=== PATIENT | male | born 1935 | race Caucasian/White ===

== ENCOUNTER 2019-11-25 14:30 | Inpatient (IN) ==
[2019-11-25] MEDS ORDERED: SODIUM CHLORIDE 0.9% 500 ML IV STA (15:16)
[2019-11-25 15:41] LABS: Basophils % 0.2 % (0.0-0.8); Hematocrit 36.3 VOL% (42.0-52.0); Hemoglobin 11.9 GM/DL (14.0-18.0); Immature Granulocytes % 0.8 %; Immature Granulocytes Absolute 0.13 #; Lymphocytes # 0.8 10*3/uL (1.4-4.0); Mean Corpuscular HGB Conc 32.8 GM/DL (32-36); Mean Corpuscular Volume 80.1 FL (87-102); Mean Platelet Volume 10.4 FL (9.6-12.0); Monocytes % 7.2 % (1.7-12.7); Neutrophils % 86.8 % (38.7-73.9); Platelet Count 272 T/CUMM (130-400); Red Blood Count 4.53 MC/CUMM (3.8-5.5); Red Cell Distribution Width 15.1 % (9.3-17.3); White Blood Count 16.7 T/CUMM (4-12)
[2019-11-25 16:05] LABS: Alanine Aminotransferase 17 U/L (16-61); Albumin 3.7 G/DL (3.4-5.0); Alkaline Phosphatase 40 U/L (45-117); Aspartate Amino Transferase 12 U/L (0-37); Blood Urea Nitrogen 36 MG/DL (7-18); Calcium 9.2 MG/DL (8.5-10.1); Estimated Glom Filtration Rate 46 ML/MIN; Glucose 246 MG/DL (74-106); Osmolality,Calculated 281.4 MOS/KG (273-304); Total Protein 8.1 G/DL (6.4-8.3); Troponin I < 0.015 NG/ML (0.00-0.045)
[2019-11-25] MEDS ORDERED: AZITHROMYCIN INJ 500 MG in SODIUM CHLORIDE 0.9% 250 ML IV STA (16:08)
[2019-11-25] MEDS ORDERED: methylPREDNISolone SOD SUC 125 MG/2 ML VIAL IV STA (16:08)
[2019-11-25] MEDS ORDERED: HYDROXYCHLOROQUINE 200 MG TABLET PO STA (16:08)
[2019-11-25 16:12] LABS: Ferritin 40.6 ng/ml (26-388)
[2019-11-25 17:24] LABS: Apearance,Urine CLEAR (Clear); Bacteria,Urine Occasional /HPF (Few); Bilirubin,Urine Negative (Negative); Blood, Urine Small mg/dL (Negative); Glucose,Urine (UA) 150 mg/dL (Negative); Hyaline Casts,Urine 4 /LPF (0-3); Ketones,Urine Negative (Negative); Mucus,Urine Occasional /LPF (Occasional); Nitrite,Urine Negative (Negative); Protein,Urine 100 MG/DL; RBC,Urine 2 /HPF (0-4); Squamous Epithelial Cell,Urine Occasional /HPF (0-10); Urine Color Yellow (Yellow); Urine Urobilinogen < 2.0 EU/DL (0.2-1.0); WBC,Urine 2 /HPF (0-6)
[2019-11-25] MEDS ORDERED: ONDANSETRON 4 MG/2 ML VIAL IV PRN (18:11)
[2019-11-25] MEDS ORDERED: DEXTROSE 10% 250 ML BAG IV PRN (18:11)
[2019-11-25] MEDS ORDERED: DEXTROSE 50% 25 GM/50 ML VIAL IV PRN (18:11)
[2019-11-25] MEDS ORDERED: GLUCAGON 1 MG VIAL IM PRN (18:11)
[2019-11-25] MEDS: ZINC SULFATE 220 MG CAPSULE PO SCH (21:50)
[2019-11-25] MEDS: SIMVASTATIN 10 MG TABLET PO SCH (21:50)
[2019-11-25] MEDS: INSULIN LISPRO 100 UNIT/ML SUBCUT SCH (21:55)
[2019-11-26] MEDS: INSULIN LISPRO 100 UNIT/ML SUBCUT SCH ×5 (00:55→21:57)
[2019-11-26 04:50] LABS: Basophils % 0.1 % (0.0-0.8); Hematocrit 34.9 VOL% (42.0-52.0); Hemoglobin 11.2 GM/DL (14.0-18.0); Immature Granulocytes % 0.8 %; Immature Granulocytes Absolute 0.11 #; Lymphocytes # 0.8 10*3/uL (1.4-4.0); Lymphocytes % 5.8 % (21.2-54.2); Mean Corpuscular HGB Conc 32.1 GM/DL (32-36); Mean Corpuscular Volume 80.4 FL (87-102); Mean Platelet Volume 11.1 FL (9.6-12.0); Monocytes % 3.2 % (1.7-12.7); Neutrophils % 90.1 % (38.7-73.9); Platelet Count 290 T/CUMM (130-400); Red Blood Count 4.34 MC/CUMM (3.8-5.5); Red Cell Distribution Width 15.2 % (9.3-17.3); White Blood Count 14.3 T/CUMM (4-12)
[2019-11-26 05:17] LABS: Albumin 3.2 G/DL (3.4-5.0); Bilirubin,Total 0.6 MG/DL (0.2-1.0); Calcium 8.8 MG/DL (8.5-10.1); Osmolality,Calculated 282.2 MOS/KG (273-304); Total Protein 7.5 G/DL (6.4-8.3)
[2019-11-26] MEDS ORDERED: HYDROXYCHLOROQUINE 200 MG TABLET PO SCH ×2 (09:00→09:39)
[2019-11-26] MEDS: PANTOPRAZOLE 40 MG TABLET PO SCH (09:40)
[2019-11-26] MEDS: METOPROLOL SUCCINATE XL 50 MG TABLET PO SCH (09:40)
[2019-11-26] MEDS: AZITHROMYCIN 250 MG TABLET PO SCH (09:40)
[2019-11-26] MEDS: amLODIPine 10 MG TABLET PO SCH (09:40)
[2019-11-26] MEDS: SODIUM CHLORIDE 0.9% 1,000 ML IV SCH ×2 (09:42→22:35)
[2019-11-26 11:44] LABS: % Iron Saturation 5.5 % (18-50)
[2019-11-26] MEDS: HYDROXYCHLOROQUINE 200 MG TABLET PO SCH (21:57)
[2019-11-26] MEDS: SIMVASTATIN 10 MG TABLET PO SCH (21:58)
[2019-11-27 05:51] LABS: Basophils % 0.1 % (0.0-0.8); Eosinophils % 0.1 % (0.00-10.9); Hemoglobin 10.1 GM/DL (14.0-18.0); Immature Granulocytes % 2.1 %; Immature Granulocytes Absolute 0.29 #; Lymphocytes # 0.7 10*3/uL (1.4-4.0); Lymphocytes % 4.6 % (21.2-54.2); Mean Corpuscular HGB Conc 31.6 GM/DL (32-36); Mean Corpuscular Volume 82.3 FL (87-102); Mean Platelet Volume 10.7 FL (9.6-12.0); Neutrophils % 88.1 % (38.7-73.9); Platelet Count 292 T/CUMM (130-400); Red Blood Count 3.89 MC/CUMM (3.8-5.5); Red Cell Distribution Width 15.2 % (9.3-17.3); White Blood Count 14.1 T/CUMM (4-12)
[2019-11-27 06:18] LABS: Albumin 2.6 G/DL (3.4-5.0); Bilirubin,Total 0.5 MG/DL (0.2-1.0); Calcium 7.1 MG/DL (8.5-10.1); Osmolality,Calculated 288.3 MOS/KG (273-304); Total Protein 6.3 G/DL (6.4-8.3)
[2019-11-27 06:59] LABS: Anisocytosis 1+; Band Neutrophils 15 % (0-10); Lymphocytes 6 % (20-55); Metamyelocytes 1 %; Platelet Estimate Normal; Segmented Neutrophils 73 % (50-85); Total Cells Counted 100
[2019-11-27 07:00] LABS: Macrocytosis Slight; Poikilocytosis Slight
[2019-11-27] MEDS: INSULIN LISPRO 100 UNIT/ML SUBCUT SCH ×4 (09:11→21:30)
[2019-11-27] MEDS: METOPROLOL SUCCINATE XL 50 MG TABLET PO SCH (09:12)
[2019-11-27] MEDS: PANTOPRAZOLE 40 MG TABLET PO SCH (09:13)
[2019-11-27] MEDS: HYDROXYCHLOROQUINE 200 MG TABLET PO SCH ×2 (09:13→21:30)
[2019-11-27] MEDS: AZITHROMYCIN 250 MG TABLET PO SCH (09:13)
[2019-11-27] MEDS: amLODIPine 10 MG TABLET PO SCH (09:13)
[2019-11-27] MEDS: ZINC SULFATE 220 MG CAPSULE PO SCH (09:44)
[2019-11-27] MEDS: POTASSIUM CHLORIDE 20 MEQ TABLET PO PRN ×4 (09:48→17:22)
[2019-11-27] MEDS: SIMVASTATIN 10 MG TABLET PO SCH (21:30)
[2019-11-27] MEDS: SODIUM CHLORIDE 0.9% 1,000 ML IV SCH (22:55)
[2019-11-28] MEDS: SODIUM CHLORIDE 0.9% 1,000 ML IV SCH ×2 (00:58→17:15)
[2019-11-28 05:16] LABS: Basophils % 0.1 % (0.0-0.8); Eosinophils % 0.3 % (0.00-10.9); Hematocrit 31.6 VOL% (42.0-52.0); Hemoglobin 10.4 GM/DL (14.0-18.0); Immature Granulocytes % 1.6 %; Immature Granulocytes Absolute 0.17 #; Lymphocytes # 0.6 10*3/uL (1.4-4.0); Lymphocytes % 5.7 % (21.2-54.2); Mean Corpuscular HGB Conc 32.9 GM/DL (32-36); Mean Corpuscular Volume 80.2 FL (87-102); Mean Platelet Volume 10.2 FL (9.6-12.0); Monocytes % 5.2 % (1.7-12.7); Neutrophils % 87.1 % (38.7-73.9); Platelet Count 253 T/CUMM (130-400); Red Blood Count 3.94 MC/CUMM (3.8-5.5); Red Cell Distribution Width 15.2 % (9.3-17.3); White Blood Count 10.6 T/CUMM (4-12)
[2019-11-28] MEDS: ACETAMINOPHEN 325 MG TABLET PO PRN ×2 (05:40→21:30)
[2019-11-28 06:39] LABS: Albumin 2.6 G/DL (3.4-5.0); Bilirubin,Total 0.5 MG/DL (0.2-1.0); Calcium 7.3 MG/DL (8.5-10.1); Total Protein 6.5 G/DL (6.4-8.3)
[2019-11-28] MEDS: ENOXAPARIN 40 MG/0.4 ML SYRINGE SUBCUT SCH (08:35)
[2019-11-28] MEDS: METOPROLOL SUCCINATE XL 50 MG TABLET PO SCH (08:36)
[2019-11-28] MEDS: AZITHROMYCIN 250 MG TABLET PO SCH (08:36)
[2019-11-28] MEDS: PANTOPRAZOLE 40 MG TABLET PO SCH (08:36)
[2019-11-28] MEDS: HYDROXYCHLOROQUINE 200 MG TABLET PO SCH ×2 (08:36→21:30)
[2019-11-28] MEDS: amLODIPine 10 MG TABLET PO SCH (08:36)
[2019-11-28] MEDS: INSULIN LISPRO 100 UNIT/ML SUBCUT SCH ×4 (09:25→21:30)
[2019-11-28] MEDS: SIMVASTATIN 10 MG TABLET PO SCH (21:30)
[2019-11-29] MEDS ORDERED: ETOMIDATE 20 MG/10 ML VIAL IV ONE ×2 (03:26→03:37)
[2019-11-29] MEDS ORDERED: ROCURONIUM 100 MG/10 ML VIAL IV ONE ×2 (03:26→03:54)
[2019-11-29] MEDS ORDERED: propofoL 200 MG/20 ML VIAL IV ONE (03:38)
[2019-11-29] MEDS ORDERED: propofoL 200 MG/20 ML VIAL IV STA (03:43)
[2019-11-29] MEDS: ROCURONIUM 500 MG in SODIUM CHLORIDE 0.9% 500 ML IV SCH (04:27)
[2019-11-29 04:30] LABS: ABG Base Excess -5.4 MMOL/L (-2.5-2.5); ABG HCO3 19.7 MMOL/L (20-26); ABG Oxygen Saturation 98.6 % (95-100); ABG PH 7.345 (7.35-7.45); ABG PO2 154.1 MM HG (80-95); ABG TCO2 20.9 MMOL/L (23-27); Allen Test Positive; Pt O2 Delivery Device Ventilator
[2019-11-29 05:05] LABS: Basophils % 0.2 % (0.0-0.8); Eosinophils % 0.2 % (0.00-10.9); Hematocrit 30.6 VOL% (42.0-52.0); Hemoglobin 9.8 GM/DL (14.0-18.0); Immature Granulocytes % 1.6 %; Immature Granulocytes Absolute 0.24 #; Lymphocytes # 0.5 10*3/uL (1.4-4.0); Mean Corpuscular Volume 81.2 FL (87-102); Monocytes % 2.8 % (1.7-12.7); Neutrophils % 92.2 % (38.7-73.9); Platelet Count 228 T/CUMM (130-400); Red Blood Count 3.77 MC/CUMM (3.8-5.5); Red Cell Distribution Width 15.4 % (9.3-17.3); White Blood Count 14.9 T/CUMM (4-12)
[2019-11-29 05:09] LABS: Osmolality,Calculated 281.7 MOS/KG (273-304)
[2019-11-29 05:26] LABS: Acanthocytes Few; Band Neutrophils 7 % (0-10); Hypochromasia 1+; Lymphocytes 3 % (20-55); Segmented Neutrophils 86 % (50-85); Total Cells Counted 100
[2019-11-29 05:27] LABS: Microcytosis Slight; Platelet Estimate Normal
[2019-11-29] MEDS ORDERED: POTASSIUM CHLORIDE RIDER 10 MEQ in PREMIX 1 EACH IV PRN (07:50)
[2019-11-29] MEDS ORDERED: MAGNESIUM SULF RIDER 2 GM in PREMIX 1 EACH IV PRN (07:50)
[2019-11-29] MEDS ORDERED: MAGNESIUM SULF RIDER 4 GM in PREMIX 1 EACH IV PRN (07:50)
[2019-11-29 08:06] LABS: Amorphous Crystals,Urine Few /HPF (Few); Apearance,Urine CLOUDY (Clear); Bilirubin,Urine Negative (Negative); Blood, Urine Small mg/dL (Negative); Glucose,Urine (UA) Negative (Negative); Ketones,Urine 5 mg/dL (Negative); Mucus,Urine Few /LPF (Occasional); Nitrite,Urine Negative (Negative); Protein,Urine 100 MG/DL; RBC,Urine 9 /HPF (0-4); Red Blood Cell Casts,Urine 14 /LPF (<1); Urine Color Yellow (Yellow); Urine Specific Gravity 1.023 (1.001-1.035); Urine Urobilinogen < 2.0 EU/DL (0.2-1.0); WBC,Urine 3 /HPF (0-6)
[2019-11-29] MEDS: PANTOPRAZOLE 40 MG VIAL IV SCH (12:22)
[2019-11-29] MEDS: PIPERACILLIN/TAZOBACTAM 3,375 MG in SODIUM CHLORIDE 0.9% 100 ML IV SCH ×3 (12:22→23:27)
[2019-11-29] MEDS: ENOXAPARIN 40 MG/0.4 ML SYRINGE SUBCUT SCH (12:22)
[2019-11-29] MEDS: AZITHROMYCIN 250 MG TABLET PO SCH (12:22)
[2019-11-29] MEDS: ZINC SULFATE 220 MG CAPSULE PO SCH (12:23)
[2019-11-29] MEDS: METOPROLOL TARTRATE 25 MG TABLET PO SCH ×2 (12:30→20:14)
[2019-11-29] MEDS: INSULIN LISPRO 100 UNIT/ML SUBCUT SCH ×4 (13:04→23:30)
[2019-11-29] MEDS: PANTOPRAZOLE 40 MG TABLET PO SCH (13:08)
[2019-11-29] MEDS: HYDROXYCHLOROQUINE 200 MG TABLET PO SCH ×2 (14:18→20:13)
[2019-11-29] MEDS ORDERED: SODIUM CHLORIDE 0.9% 1,000 ML IV SCH (18:00)
[2019-11-29] MEDS: SIMVASTATIN 10 MG TABLET PO SCH (20:14)
[2019-11-30] MEDS ORDERED: NOREPINEPHRINE 4 MG/4 ML VIAL IV ONE (01:12)
[2019-11-30 04:17] LABS: ABG Base Excess -10.2 MMOL/L (-2.5-2.5); ABG HCO3 16.3 MMOL/L (20-26); ABG TCO2 22.8 MMOL/L (23-27); Allen Test Positive; Pt O2 Delivery Device Ventilator
[2019-11-30 04:25] LABS: ABG PH 7.006 (7.35-7.45)
[2019-11-30 04:26] LABS: ABG PCO2 92.8 MM HG (35-48)
[2019-11-30] MEDS: INSULIN LISPRO 100 UNIT/ML SUBCUT SCH ×3 (05:46→18:13)
[2019-11-30] MEDS: ROCURONIUM 500 MG in SODIUM CHLORIDE 0.9% 500 ML IV SCH (05:52)
[2019-11-30 08:38] LABS: ABG Base Excess -9.8 MMOL/L (-2.5-2.5); ABG HCO3 16.7 MMOL/L (20-26); ABG Oxygen Saturation 99.5 % (95-100); ABG PCO2 60.3 MM HG (35-48); ABG TCO2 18.9 MMOL/L (23-27)
[2019-11-30 08:39] LABS: ABG PH 7.133 (7.35-7.45)
[2019-11-30 08:51] LABS: Calcium 7.8 MG/DL (8.5-10.1); Osmolality,Calculated 289.7 MOS/KG (273-304)
[2019-11-30] MEDS ORDERED: ASPIRIN EC 81 MG TABLET PO SCH (09:00)
[2019-11-30] MEDS ORDERED: SODIUM CHLORIDE 0.9% 500 ML IV ONE (09:13)
[2019-11-30] MEDS: PANTOPRAZOLE 40 MG VIAL IV SCH (09:24)
[2019-11-30] MEDS: HYDROXYCHLOROQUINE 200 MG TABLET PO SCH (09:25)
[2019-11-30] MEDS: METOPROLOL TARTRATE 25 MG TABLET PO SCH ×2 (09:25→21:16)
[2019-11-30] MEDS: PIPERACILLIN/TAZOBACTAM 3,375 MG in SODIUM CHLORIDE 0.9% 100 ML IV SCH ×2 (09:27→15:19)
[2019-11-30] MEDS: ENOXAPARIN 40 MG/0.4 ML SYRINGE SUBCUT SCH (09:49)
[2019-11-30] MEDS: SODIUM CHLORIDE 0.9% 1,000 ML IV SCH (10:23)
[2019-11-30 11:39] LABS: Basophils % 0.3 % (0.0-0.8); Eosinophils % 0.1 % (0.00-10.9); Hematocrit 32.2 VOL% (42.0-52.0); Hemoglobin 9.5 GM/DL (14.0-18.0); Immature Granulocytes % 1.6 %; Immature Granulocytes Absolute 0.21 #; Lymphocytes # 0.6 10*3/uL (1.4-4.0); Lymphocytes % 4.7 % (21.2-54.2); Mean Corpuscular HGB Conc 29.5 GM/DL (32-36); Mean Corpuscular Volume 88.2 FL (87-102); Mean Platelet Volume 10.9 FL (9.6-12.0); Monocytes % 3.9 % (1.7-12.7); Neutrophils % 89.4 % (38.7-73.9); Platelet Count 167 T/CUMM (130-400); Red Blood Count 3.65 MC/CUMM (3.8-5.5); Red Cell Distribution Width 15.6 % (9.3-17.3); White Blood Count 13.4 T/CUMM (4-12)
[2019-11-30 12:03] LABS: Acanthocytes 1+; Lymphocytes 7 % (20-55); Microcytosis 1+; Polychromasia Slight; Segmented Neutrophils 89 % (50-85)
[2019-11-30 12:04] LABS: Platelet Estimate Adequate; Smudge Cells Few; Total Cells Counted 100
[2019-11-30 17:36] LABS: ABG Base Excess -8.1 MMOL/L (-2.5-2.5); ABG HCO3 17.4 MMOL/L (20-26); ABG Oxygen Saturation 65.2 % (95-100); ABG PCO2 54.5 MM HG (35-48); ABG TCO2 19.4 MMOL/L (23-27)
[2019-11-30 17:44] LABS: ABG PH 7.184 (7.35-7.45)
[2019-11-30 17:45] LABS: ABG PO2 38.3 MM HG (80-95)
[2019-11-30] MEDS: SIMVASTATIN 10 MG TABLET PO SCH (21:16)
[2019-11-30] MEDS: NOREPINEPHRINE 8 MG in SODIUM CHLORIDE 0.9% 242 ML IV PRN (23:03)
[2019-12-01] MEDS: INSULIN LISPRO 100 UNIT/ML SUBCUT SCH ×4 (00:40→17:57)
[2019-12-01] MEDS: PIPERACILLIN/TAZOBACTAM 3,375 MG in SODIUM CHLORIDE 0.9% 100 ML IV SCH ×3 (00:41→17:50)
[2019-12-01 01:33] LABS: Allen Test Positive; Pt O2 Delivery Device Ventilator
[2019-12-01 01:35] LABS: ABG Base Excess -10.7 MMOL/L (-2.5-2.5); ABG HCO3 15.9 MMOL/L (20-26); ABG Oxygen Saturation 96.3 % (95-100); ABG PCO2 43.8 MM HG (35-48); ABG PO2 95.3 MM HG (80-95); ABG TCO2 15.9 MMOL/L (23-27)
[2019-12-01 01:37] LABS: ABG PH 7.199 (7.35-7.45)
[2019-12-01 01:48] LABS: Basophils % 0.3 % (0.0-0.8); Eosinophils # 0.1 10*3/uL (0.0-0.87); Hematocrit 33.5 VOL% (42.0-52.0); Hemoglobin 10.5 GM/DL (14.0-18.0); Immature Granulocytes % 2.5 %; Immature Granulocytes Absolute 0.36 #; Lymphocytes # 0.7 10*3/uL (1.4-4.0); Mean Corpuscular HGB Conc 31.3 GM/DL (32-36); Mean Corpuscular Volume 83.5 FL (87-102); Mean Platelet Volume 11.3 FL (9.6-12.0); NRBC # 0.03 10*3/uL; Neutrophils % 87.2 % (38.7-73.9); Platelet Count 195 T/CUMM (130-400); Red Blood Count 4.01 MC/CUMM (3.8-5.5); Red Cell Distribution Width 15.9 % (9.3-17.3); White Blood Count 14.1 T/CUMM (4-12)
[2019-12-01] MEDS ORDERED: SODIUM BICARBONATE 50 MEQ/50 ML VIAL IV STA (01:50)
[2019-12-01] MEDS: SODIUM CHLORIDE 0.9% 1,000 ML IV SCH ×4 (02:19→17:42)
[2019-12-01 03:00] LABS: Calcium 6.8 MG/DL (8.5-10.1); Osmolality,Calculated 297.5 MOS/KG (273-304)
[2019-12-01 04:21] LABS: ABG Base Excess -9.9 MMOL/L (-2.5-2.5); ABG HCO3 16.5 MMOL/L (20-26); ABG Oxygen Saturation 93.6 % (95-100); ABG PO2 77.4 MM HG (80-95); ABG TCO2 17.1 MMOL/L (23-27); Allen Test Positive; Pt O2 Delivery Device Ventilator
[2019-12-01 04:31] LABS: ABG PH 7.189 (7.35-7.45)
[2019-12-01 05:09] LABS: Alanine Aminotransferase 17 U/L (16-61); Albumin 2.1 G/DL (3.4-5.0); Alkaline Phosphatase 39 U/L (45-117); Aspartate Amino Transferase 34 U/L (0-37); Bilirubin,Indirect 0.2 MG/DL (0.0-1.0); Bilirubin,Total < 0.39 MG/DL (0.2-1.0); Total Protein 5.4 G/DL (6.4-8.3)
[2019-12-01] MEDS: ROCURONIUM 500 MG in SODIUM CHLORIDE 0.9% 500 ML IV SCH (06:06)
[2019-12-01] MEDS: PANTOPRAZOLE 40 MG VIAL IV SCH (09:34)
[2019-12-01] MEDS: ENOXAPARIN 30 MG/0.3 ML SYRINGE SUBCUT SCH (09:34)
[2019-12-01] MEDS: ASPIRIN CHEW 81 MG TABLET PO SCH (09:34)
[2019-12-01] MEDS: METOPROLOL TARTRATE 25 MG TABLET PO SCH ×2 (09:34→20:53)
[2019-12-01] MEDS ORDERED: VANCOMYCIN INJ 1,500 MG in SODIUM CHLORIDE 0.9% 500 ML IV ONE (12:30)
[2019-12-01] MEDS: NOREPINEPHRINE 8 MG in SODIUM CHLORIDE 0.9% 242 ML IV PRN (19:27)
[2019-12-01] MEDS: SIMVASTATIN 10 MG TABLET PO SCH (20:53)
[2019-12-02] MEDS: PIPERACILLIN/TAZOBACTAM 3,375 MG in SODIUM CHLORIDE 0.9% 100 ML IV SCH ×2 (00:17→08:54)
[2019-12-02] MEDS: INSULIN LISPRO 100 UNIT/ML SUBCUT SCH ×5 (00:17→23:31)
[2019-12-02] MEDS: SODIUM CHLORIDE 0.9% 1,000 ML IV SCH ×2 (02:48→12:05)
[2019-12-02 04:57] LABS: ABG Base Excess -11.7 MMOL/L (-2.5-2.5); ABG HCO3 15.4 MMOL/L (20-26); ABG Oxygen Saturation 99.2 % (95-100); ABG PCO2 48.4 MM HG (35-48); ABG TCO2 15.9 MMOL/L (23-27); Allen Test Positive; Pt O2 Delivery Device Ventilator
[2019-12-02 05:00] LABS: ABG PH 7.161 (7.35-7.45)
[2019-12-02] MEDS: ROCURONIUM 500 MG in SODIUM CHLORIDE 0.9% 500 ML IV SCH (05:29)
[2019-12-02 05:44] LABS: Basophils % 0.2 % (0.0-0.8); Eosinophils % 0.2 % (0.00-10.9); Hemoglobin 9.3 GM/DL (14.0-18.0); Immature Granulocytes % 2.3 %; Immature Granulocytes Absolute 0.24 #; Lymphocytes # 0.6 10*3/uL (1.4-4.0); Lymphocytes % 5.5 % (21.2-54.2); Mean Corpuscular Volume 84.3 FL (87-102); Mean Platelet Volume 10.6 FL (9.6-12.0); Monocytes % 4.7 % (1.7-12.7); Neutrophils % 87.1 % (38.7-73.9); Platelet Count 186 T/CUMM (130-400); Red Blood Count 3.56 MC/CUMM (3.8-5.5); Red Cell Distribution Width 16.6 % (9.3-17.3); White Blood Count 10.3 T/CUMM (4-12)
[2019-12-02 06:00] LABS: Calcium 7.3 MG/DL (8.5-10.1); Osmolality,Calculated 309.3 MOS/KG (273-304)
[2019-12-02] MEDS: ASPIRIN CHEW 81 MG TABLET PO SCH (08:54)
[2019-12-02] MEDS: ENOXAPARIN 30 MG/0.3 ML SYRINGE SUBCUT SCH (08:54)
[2019-12-02] MEDS: METOPROLOL TARTRATE 25 MG TABLET PO SCH ×2 (08:54→20:51)
[2019-12-02] MEDS: PANTOPRAZOLE 40 MG VIAL IV SCH (08:55)
[2019-12-02] MEDS: MEROPENEM 500 MG in SODIUM CHLORIDE 0.9% 100 ML IV SCH (12:05)
[2019-12-02] MEDS: LINEZOLID INJ 600 MG in PREMIX 1 EACH IV SCH (16:35)
[2019-12-02] MEDS: SODIUM BICARB INJ 100 MEQ in STERILE WATER INJ 1,000 ML IV SCH (17:56)
[2019-12-02] MEDS: SIMVASTATIN 10 MG TABLET PO SCH (20:51)
[2019-12-02] MEDS ORDERED: PIPERACILLIN/TAZOBACTAM 3,375 MG in SODIUM CHLORIDE 0.9% 100 ML IV SCH (21:00)
[2019-12-03] MEDS ORDERED: dilTIAZem Drip 125 MG/125 ML PREMIX IV SCH (01:30)
[2019-12-03] MEDS: ROCURONIUM 500 MG in SODIUM CHLORIDE 0.9% 500 ML IV SCH (03:15)
[2019-12-03 04:36] LABS: Basophils % 0.2 % (0.0-0.8); Eosinophils % 0.2 % (0.00-10.9); Hematocrit 29.4 VOL% (42.0-52.0); Hemoglobin 9.4 GM/DL (14.0-18.0); Immature Granulocytes % 2.4 %; Lymphocytes # 0.7 10*3/uL (1.4-4.0); Lymphocytes % 4.1 % (21.2-54.2); Mean Corpuscular Volume 79.9 FL (87-102); Monocytes % 3.5 % (1.7-12.7); NRBC # 0.02 10*3/uL; Neutrophils % 89.6 % (38.7-73.9); Platelet Count 206 T/CUMM (130-400); Red Blood Count 3.68 MC/CUMM (3.8-5.5); Red Cell Distribution Width 16.8 % (9.3-17.3); White Blood Count 16.9 T/CUMM (4-12)
[2019-12-03 04:55] LABS: Calcium 7.5 MG/DL (8.5-10.1); Osmolality,Calculated 304.4 MOS/KG (273-304)
[2019-12-03] MEDS: LINEZOLID INJ 600 MG in PREMIX 1 EACH IV SCH ×2 (04:57→17:21)
[2019-12-03 05:05] LABS: ABG Base Excess -10.7 MMOL/L (-2.5-2.5); ABG HCO3 15.2 MMOL/L (20-26); ABG Oxygen Saturation 97.9 % (95-100); ABG PCO2 33.9 MM HG (35-48); ABG PO2 134.4 MM HG (80-95); ABG TCO2 16.3 MMOL/L (23-27); Allen Test Positive; Pt O2 Delivery Device Ventilator
[2019-12-03 05:34] LABS: Band Neutrophils 4 % (0-10); Eosinophils 1 % (0-10); Lymphocytes 7 % (20-55); Platelet Estimate Normal; Segmented Neutrophils 86 % (50-85); Total Cells Counted 100
[2019-12-03 05:35] LABS: Acanthocytes 2+; Anisocytosis 2+; Elliptocytes Few; Macrocytosis 1+; Microcytosis 1+; Ovalocytes 1+
[2019-12-03] MEDS: INSULIN LISPRO 100 UNIT/ML SUBCUT SCH ×3 (06:38→17:49)
[2019-12-03] MEDS: ASPIRIN CHEW 81 MG TABLET PO SCH (08:07)
[2019-12-03] MEDS: METOPROLOL TARTRATE 25 MG TABLET PO SCH ×2 (08:07→20:42)
[2019-12-03] MEDS: ENOXAPARIN 30 MG/0.3 ML SYRINGE SUBCUT SCH (08:08)
[2019-12-03] MEDS: PANTOPRAZOLE 40 MG VIAL IV SCH (08:09)
[2019-12-03] MEDS ORDERED: DIGOXIN 0.5 MG/2 ML AMP IV ONE ×2 (11:03→12:15)
[2019-12-03] MEDS: MEROPENEM 500 MG in SODIUM CHLORIDE 0.9% 100 ML IV SCH (12:54)
[2019-12-03] MEDS: SODIUM BICARB INJ 100 MEQ in STERILE WATER INJ 1,000 ML IV SCH (16:04)
[2019-12-03] MEDS: SIMVASTATIN 10 MG TABLET PO SCH (20:42)
[2019-12-04] MEDS: INSULIN LISPRO 100 UNIT/ML SUBCUT SCH ×4 (00:32→19:55)
[2019-12-04 03:32] LABS: ABG HCO3 17.2 MMOL/L (20-26); ABG Oxygen Saturation 99.2 % (95-100); ABG PCO2 37.5 MM HG (35-48); ABG PH 7.271 (7.35-7.45); Allen Test Positive; Pt O2 Delivery Device Ventilator
[2019-12-04 03:46] LABS: Basophils % 0.2 % (0.0-0.8); Eosinophils # 0.1 10*3/uL (0.0-0.87); Eosinophils % 0.5 % (0.00-10.9); Hemoglobin 8.3 GM/DL (14.0-18.0); Immature Granulocytes % 1.4 %; Immature Granulocytes Absolute 0.18 #; Lymphocytes # 0.6 10*3/uL (1.4-4.0); Lymphocytes % 4.4 % (21.2-54.2); Mean Corpuscular HGB Conc 33.2 GM/DL (32-36); Mean Corpuscular Volume 78.6 FL (87-102); Mean Platelet Volume 10.9 FL (9.6-12.0); Monocytes % 3.3 % (1.7-12.7); Neutrophils % 90.2 % (38.7-73.9); Platelet Count 157 T/CUMM (130-400); Red Blood Count 3.18 MC/CUMM (3.8-5.5); Red Cell Distribution Width 16.4 % (9.3-17.3); White Blood Count 12.6 T/CUMM (4-12)
[2019-12-04] MEDS: SODIUM BICARB INJ 100 MEQ in STERILE WATER INJ 1,000 ML IV SCH ×2 (04:01→16:00)
[2019-12-04] MEDS: ROCURONIUM 500 MG in SODIUM CHLORIDE 0.9% 500 ML IV SCH (04:02)
[2019-12-04 04:14] LABS: Calcium 8.1 MG/DL (8.5-10.1); Osmolality,Calculated 306.7 MOS/KG (273-304)
[2019-12-04 05:04] LABS: Eosinophils 1 % (0-10); Lymphocytes 4 % (20-55); Segmented Neutrophils 93 % (50-85); Total Cells Counted 100
[2019-12-04 05:05] LABS: Hypochromasia 1+; Platelet Estimate Normal
[2019-12-04 05:06] LABS: Elliptocytes Few
[2019-12-04] MEDS: LINEZOLID INJ 600 MG in PREMIX 1 EACH IV SCH ×2 (05:29→16:01)
[2019-12-04] MEDS: METOPROLOL TARTRATE 25 MG TABLET PO SCH ×2 (09:27→21:56)
[2019-12-04] MEDS: PANTOPRAZOLE 40 MG VIAL IV SCH (09:27)
[2019-12-04] MEDS: ASPIRIN CHEW 81 MG TABLET PO SCH (09:27)
[2019-12-04] MEDS: ENOXAPARIN 30 MG/0.3 ML SYRINGE SUBCUT SCH (09:27)
[2019-12-04] MEDS: SIMVASTATIN 10 MG TABLET PO SCH (21:56)
[2019-12-05] MEDS: INSULIN LISPRO 100 UNIT/ML SUBCUT SCH ×5 (01:36→23:50)
[2019-12-05 03:24] LABS: ABG Base Excess -9.5 MMOL/L (-2.5-2.5); ABG HCO3 16.7 MMOL/L (20-26); ABG Oxygen Saturation 98.9 % (95-100); ABG PCO2 37.8 MM HG (35-48); ABG PH 7.264 (7.35-7.45); ABG PO2 168.9 MM HG (80-95); ABG TCO2 17.9 MMOL/L (23-27)
[2019-12-05 04:50] LABS: Basophils % 0.1 % (0.0-0.8); Eosinophils # 0.1 10*3/uL (0.0-0.87); Eosinophils % 0.9 % (0.00-10.9); Hematocrit 23.7 VOL% (42.0-52.0); Hemoglobin 7.7 GM/DL (14.0-18.0); Immature Granulocytes % 1.6 %; Immature Granulocytes Absolute 0.14 #; Lymphocytes # 0.4 10*3/uL (1.4-4.0); Lymphocytes % 4.9 % (21.2-54.2); Mean Corpuscular HGB Conc 32.5 GM/DL (32-36); Mean Corpuscular Volume 80.3 FL (87-102); Mean Platelet Volume 10.5 FL (9.6-12.0); Neutrophils % 89.5 % (38.7-73.9); Platelet Count 140 T/CUMM (130-400); Red Blood Count 2.95 MC/CUMM (3.8-5.5); Red Cell Distribution Width 16.2 % (9.3-17.3); White Blood Count 8.9 T/CUMM (4-12)
[2019-12-05] MEDS: ROCURONIUM 500 MG in SODIUM CHLORIDE 0.9% 500 ML IV SCH (05:02)
[2019-12-05] MEDS: LINEZOLID INJ 600 MG in PREMIX 1 EACH IV SCH ×2 (06:12→17:11)
[2019-12-05 07:51] LABS: Acanthocytes Few; Band Neutrophils 6 % (0-10); Lymphocytes 5 % (20-55); Metamyelocytes 1 %; Ovalocytes Few; Platelet Estimate Decreased; Segmented Neutrophils 85 % (50-85); Total Cells Counted 100
[2019-12-05] MEDS: METOPROLOL TARTRATE 25 MG TABLET PO SCH ×2 (08:06→20:11)
[2019-12-05] MEDS: PANTOPRAZOLE 40 MG VIAL IV SCH (08:06)
[2019-12-05] MEDS: ENOXAPARIN 30 MG/0.3 ML SYRINGE SUBCUT SCH (08:06)
[2019-12-05] MEDS: ASPIRIN CHEW 81 MG TABLET PO SCH (08:06)
[2019-12-05] MEDS: SODIUM BICARB INJ 100 MEQ in STERILE WATER INJ 1,000 ML IV SCH ×2 (09:09→14:06)
[2019-12-05 12:40] LABS: Calcium 8.3 MG/DL (8.5-10.1); Osmolality,Calculated 311.1 MOS/KG (273-304)
[2019-12-05] MEDS: SIMVASTATIN 10 MG TABLET PO SCH (20:11)
[2019-12-06 03:45] LABS: ABG Base Excess -7.2 MMOL/L (-2.5-2.5); ABG HCO3 18.5 MMOL/L (20-26); ABG Oxygen Saturation 98.5 % (95-100); ABG PH 7.255 (7.35-7.45); ABG TCO2 18.6 MMOL/L (23-27); Allen Test Positive; Pt O2 Delivery Device Ventilator
[2019-12-06 04:37] LABS: Basophils % 0.2 % (0.0-0.8); Eosinophils # 0.1 10*3/uL (0.0-0.87); Eosinophils % 0.9 % (0.00-10.9); Hematocrit 22.7 VOL% (42.0-52.0); Hemoglobin 7.5 GM/DL (14.0-18.0); Immature Granulocytes % 1.8 %; Immature Granulocytes Absolute 0.16 #; Lymphocytes # 0.5 10*3/uL (1.4-4.0); Lymphocytes % 5.4 % (21.2-54.2); Mean Platelet Volume 11.3 FL (9.6-12.0); Monocytes % 2.9 % (1.7-12.7); Neutrophils % 88.8 % (38.7-73.9); Platelet Count 157 T/CUMM (130-400); Red Blood Count 2.91 MC/CUMM (3.8-5.5); Red Cell Distribution Width 15.9 % (9.3-17.3); White Blood Count 8.9 T/CUMM (4-12)
[2019-12-06] MEDS: ROCURONIUM 500 MG in SODIUM CHLORIDE 0.9% 500 ML IV SCH (04:59)
[2019-12-06] MEDS: LINEZOLID INJ 600 MG in PREMIX 1 EACH IV SCH ×2 (05:00→18:14)
[2019-12-06 05:12] LABS: Calcium 8.2 MG/DL (8.5-10.1); Osmolality,Calculated 304.4 MOS/KG (273-304)
[2019-12-06 05:28] LABS: Band Neutrophils 3 % (0-10); Eosinophils 2 % (0-10); Lymphocytes 5 % (20-55); Segmented Neutrophils 88 % (50-85); Total Cells Counted 100
[2019-12-06 05:29] LABS: Hypochromasia 1+; Microcytosis 1+
[2019-12-06 05:30] LABS: Platelet Estimate Adequate
[2019-12-06] MEDS: INSULIN LISPRO 100 UNIT/ML SUBCUT SCH ×3 (05:37→18:16)
[2019-12-06] MEDS: PANTOPRAZOLE 40 MG VIAL IV SCH (08:28)
[2019-12-06] MEDS: METOPROLOL TARTRATE 25 MG TABLET PO SCH ×2 (08:29→22:14)
[2019-12-06] MEDS: ENOXAPARIN 30 MG/0.3 ML SYRINGE SUBCUT SCH (08:30)
[2019-12-06] MEDS: ASPIRIN CHEW 81 MG TABLET PO SCH (08:30)
[2019-12-06] MEDS: SODIUM BICARB INJ 100 MEQ in STERILE WATER INJ 1,000 ML IV SCH (12:50)
[2019-12-06] MEDS: DESITIN 4OZ/NYSTATIN 15 GRAM MIXTURE PASTE TOP SCH ×2 (15:56→22:11)
[2019-12-06] MEDS: SIMVASTATIN 10 MG TABLET PO SCH (22:13)
[2019-12-06] MEDS: INSULIN GLARGINE 100 UNIT/ML SUBCUT SCH (22:17)
[2019-12-07] MEDS: INSULIN LISPRO 100 UNIT/ML SUBCUT SCH ×4 (01:54→17:46)
[2019-12-07 04:37] LABS: Allen Test Positive; Pt O2 Delivery Device Ventilator
[2019-12-07 04:38] LABS: ABG Base Excess -4.6 MMOL/L (-2.5-2.5); ABG Oxygen Saturation 96.9 % (95-100); ABG PCO2 34.3 MM HG (35-48); ABG PH 7.383 (7.35-7.45); ABG PO2 101.8 MM HG (80-95)
[2019-12-07 05:44] LABS: Basophils % 0.1 % (0.0-0.8); Eosinophils # 0.1 10*3/uL (0.0-0.87); Eosinophils % 1.2 % (0.00-10.9); Hematocrit 19.8 VOL% (42.0-52.0); Immature Granulocytes % 1.6 %; Immature Granulocytes Absolute 0.11 #; Lymphocytes # 0.5 10*3/uL (1.4-4.0); Lymphocytes % 7.2 % (21.2-54.2); Mean Corpuscular HGB Conc 33.3 GM/DL (32-36); Mean Corpuscular Volume 78.6 FL (87-102); Neutrophils % 85.9 % (38.7-73.9); Platelet Count 160 T/CUMM (130-400); Red Blood Count 2.52 MC/CUMM (3.8-5.5); Red Cell Distribution Width 15.7 % (9.3-17.3); White Blood Count 6.7 T/CUMM (4-12)
[2019-12-07 05:45] LABS: Hemoglobin 6.6 GM/DL (14.0-18.0)
[2019-12-07 05:50] LABS: Calcium 8.2 MG/DL (8.5-10.1); Osmolality,Calculated 304.5 MOS/KG (273-304)
[2019-12-07] MEDS: LINEZOLID INJ 600 MG in PREMIX 1 EACH IV SCH (05:51)
[2019-12-07] MEDS ORDERED: SODIUM CHLORIDE 0.9% 1,000 ML IV PRN (07:28)
[2019-12-07] MEDS: ASPIRIN CHEW 81 MG TABLET PO SCH (08:49)
[2019-12-07] MEDS: ENOXAPARIN 30 MG/0.3 ML SYRINGE SUBCUT SCH (08:49)
[2019-12-07] MEDS: METOPROLOL TARTRATE 25 MG TABLET PO SCH ×2 (08:49→21:30)
[2019-12-07] MEDS: PANTOPRAZOLE 40 MG VIAL IV SCH (08:49)
[2019-12-07] MEDS: DESITIN 4OZ/NYSTATIN 15 GRAM MIXTURE PASTE TOP SCH ×2 (08:49→21:30)
[2019-12-07] MEDS: SODIUM BICARB INJ 100 MEQ in STERILE WATER INJ 1,000 ML IV SCH ×2 (08:50→17:55)
[2019-12-07 15:26] LABS: Hematocrit 21.3 VOL% (42.0-52.0)
[2019-12-07] MEDS: INSULIN GLARGINE 100 UNIT/ML SUBCUT SCH (21:30)
[2019-12-07] MEDS: SIMVASTATIN 10 MG TABLET PO SCH (21:30)
[2019-12-08] MEDS: INSULIN LISPRO 100 UNIT/ML SUBCUT SCH ×4 (01:03→19:11)
[2019-12-08 05:18] LABS: Basophils % 0.1 % (0.0-0.8); Eosinophils # 0.1 10*3/uL (0.0-0.87); Eosinophils % 1.4 % (0.00-10.9); Hematocrit 24.1 VOL% (42.0-52.0); Hemoglobin 7.9 GM/DL (14.0-18.0); Immature Granulocytes % 1.6 %; Immature Granulocytes Absolute 0.12 #; Lymphocytes # 0.5 10*3/uL (1.4-4.0); Lymphocytes % 6.3 % (21.2-54.2); Mean Corpuscular HGB Conc 32.8 GM/DL (32-36); Mean Corpuscular Volume 79.3 FL (87-102); Mean Platelet Volume 10.5 FL (9.6-12.0); Monocytes % 4.2 % (1.7-12.7); Neutrophils % 86.4 % (38.7-73.9); Platelet Count 169 T/CUMM (130-400); Red Blood Count 3.04 MC/CUMM (3.8-5.5); Red Cell Distribution Width 15.5 % (9.3-17.3); White Blood Count 7.7 T/CUMM (4-12)
[2019-12-08 05:23] LABS: ABG HCO3 20.3 MMOL/L (20-26); ABG Oxygen Saturation 99.6 % (95-100); ABG PCO2 38.8 MM HG (35-48); ABG PH 7.331 (7.35-7.45); ABG TCO2 19.2 MMOL/L (23-27); Allen Test Positive; Pt O2 Delivery Device Ventilator
[2019-12-08 05:29] LABS: Calcium 8.1 MG/DL (8.5-10.1); Osmolality,Calculated 300.9 MOS/KG (273-304)
[2019-12-08] MEDS: SODIUM BICARB INJ 100 MEQ in STERILE WATER INJ 1,000 ML IV SCH (06:51)
[2019-12-08] MEDS: PANTOPRAZOLE 40 MG VIAL IV SCH (08:30)
[2019-12-08] MEDS: ASPIRIN CHEW 81 MG TABLET PO SCH (08:30)
[2019-12-08] MEDS: METOPROLOL TARTRATE 25 MG TABLET PO SCH ×2 (08:31→20:00)
[2019-12-08] MEDS: DESITIN 4OZ/NYSTATIN 15 GRAM MIXTURE PASTE TOP SCH ×2 (12:22→20:00)
[2019-12-08] MEDS: SIMVASTATIN 10 MG TABLET PO SCH (20:00)
[2019-12-08] MEDS: INSULIN GLARGINE 100 UNIT/ML SUBCUT SCH (20:00)
[2019-12-09] MEDS: INSULIN LISPRO 100 UNIT/ML SUBCUT SCH ×4 (00:06→17:48)
[2019-12-09 03:36] LABS: ABG Base Excess -4.8 MMOL/L (-2.5-2.5); ABG HCO3 20.4 MMOL/L (20-26); ABG Oxygen Saturation 99.2 % (95-100); ABG PCO2 37.4 MM HG (35-48); ABG PH 7.345 (7.35-7.45); ABG TCO2 19.3 MMOL/L (23-27)
[2019-12-09 03:47] LABS: Basophils % 0.2 % (0.0-0.8); Eosinophils # 0.1 10*3/uL (0.0-0.87); Eosinophils % 1.3 % (0.00-10.9); Hematocrit 21.4 VOL% (42.0-52.0); Hemoglobin 7.1 GM/DL (14.0-18.0); Immature Granulocytes Absolute 0.06 #; Lymphocytes # 0.3 10*3/uL (1.4-4.0); Lymphocytes % 5.2 % (21.2-54.2); Mean Corpuscular HGB Conc 33.2 GM/DL (32-36); Mean Corpuscular Volume 77.5 FL (87-102); Mean Platelet Volume 10.3 FL (9.6-12.0); Monocytes % 6.6 % (1.7-12.7); Neutrophils % 85.7 % (38.7-73.9); Platelet Count 150 T/CUMM (130-400); Red Blood Count 2.76 MC/CUMM (3.8-5.5); Red Cell Distribution Width 15.7 % (9.3-17.3); White Blood Count 6.2 T/CUMM (4-12)
[2019-12-09 03:57] LABS: Albumin 1.4 G/DL (3.4-5.0); Calcium 7.9 MG/DL (8.5-10.1); Osmolality,Calculated 305.1 MOS/KG (273-304)
[2019-12-09] MEDS: PANTOPRAZOLE 40 MG VIAL IV SCH (10:11)
[2019-12-09] MEDS: DESITIN 4OZ/NYSTATIN 15 GRAM MIXTURE PASTE TOP SCH ×2 (10:11→20:18)
[2019-12-09] MEDS: METOPROLOL TARTRATE 25 MG TABLET PO SCH ×2 (10:11→20:18)
[2019-12-09] MEDS: ASPIRIN CHEW 81 MG TABLET PO SCH (10:11)
[2019-12-09] MEDS: SIMVASTATIN 10 MG TABLET PO SCH (20:18)
[2019-12-09] MEDS: INSULIN GLARGINE 100 UNIT/ML SUBCUT SCH (20:18)
[2019-12-10] MEDS: INSULIN LISPRO 100 UNIT/ML SUBCUT SCH ×4 (00:19→18:03)
[2019-12-10 04:34] LABS: ABG Base Excess -6.2 MMOL/L (-2.5-2.5); ABG HCO3 20.3 MMOL/L (20-26); ABG Oxygen Saturation 97.9 % (95-100); ABG PCO2 45.1 MM HG (35-48); ABG PH 7.271 (7.35-7.45); ABG PO2 134.1 MM HG (80-95); ABG TCO2 21.7 MMOL/L (23-27); Allen Test Positive; Pt O2 Delivery Device Ventilator
[2019-12-10 04:42] LABS: Basophils % 0.1 % (0.0-0.8); Eosinophils # 0.2 10*3/uL (0.0-0.87); Eosinophils % 1.9 % (0.00-10.9); Hematocrit 23.1 VOL% (42.0-52.0); Hemoglobin 7.8 GM/DL (14.0-18.0); Immature Granulocytes % 0.6 %; Immature Granulocytes Absolute 0.05 #; Lymphocytes # 0.5 10*3/uL (1.4-4.0); Lymphocytes % 5.6 % (21.2-54.2); Mean Corpuscular HGB Conc 33.8 GM/DL (32-36); Mean Corpuscular Volume 78.3 FL (87-102); Mean Platelet Volume 10.3 FL (9.6-12.0); Monocytes % 6.5 % (1.7-12.7); Neutrophils % 85.3 % (38.7-73.9); Platelet Count 155 T/CUMM (130-400); Red Blood Count 2.95 MC/CUMM (3.8-5.5); Red Cell Distribution Width 16.1 % (9.3-17.3)
[2019-12-10 05:05] LABS: Calcium 8.1 MG/DL (8.5-10.1); Osmolality,Calculated 310.2 MOS/KG (273-304)
[2019-12-10] MEDS: METOPROLOL TARTRATE 25 MG TABLET PO SCH ×2 (08:40→20:54)
[2019-12-10] MEDS: DESITIN 4OZ/NYSTATIN 15 GRAM MIXTURE PASTE TOP SCH ×2 (08:40→21:55)
[2019-12-10] MEDS: PANTOPRAZOLE 40 MG VIAL IV SCH (08:40)
[2019-12-10] MEDS: ASPIRIN CHEW 81 MG TABLET PO SCH (08:40)
[2019-12-10] MEDS: MULTIVITAMIN LIQUID (CENTRUM) 60 ML BOTTLE PO SCH (08:40)
[2019-12-10] MEDS ORDERED: NOREPINEPHRINE 8 MG in SODIUM CHLORIDE 0.9% 242 ML IV PRN (15:24)
[2019-12-10] MEDS: SIMVASTATIN 10 MG TABLET PO SCH (20:54)
[2019-12-10] MEDS: INSULIN GLARGINE 100 UNIT/ML SUBCUT SCH (20:55)
[2019-12-11] MEDS: INSULIN LISPRO 100 UNIT/ML SUBCUT SCH ×4 (00:26→18:07)
[2019-12-11 05:01] LABS: ABG Base Excess -7.2 MMOL/L (-2.5-2.5); ABG HCO3 18.5 MMOL/L (20-26); ABG PCO2 35.1 MM HG (35-48); ABG PH 7.323 (7.35-7.45); ABG TCO2 17.3 MMOL/L (23-27); Allen Test Positive; Pt O2 Delivery Device Ventilator
[2019-12-11 05:49] LABS: Eosinophils # 0.1 10*3/uL (0.0-0.87); Eosinophils % 1.5 % (0.00-10.9); Hematocrit 20.6 VOL% (42.0-52.0); Hemoglobin 6.8 GM/DL (14.0-18.0); Immature Granulocytes % 0.4 %; Immature Granulocytes Absolute 0.03 #; Lymphocytes # 0.4 10*3/uL (1.4-4.0); Lymphocytes % 6.4 % (21.2-54.2); Mean Corpuscular Volume 79.5 FL (87-102); Mean Platelet Volume 10.2 FL (9.6-12.0); Monocytes % 5.8 % (1.7-12.7); Neutrophils % 85.9 % (38.7-73.9); Platelet Count 132 T/CUMM (130-400); Red Blood Count 2.59 MC/CUMM (3.8-5.5); Red Cell Distribution Width 16.1 % (9.3-17.3); White Blood Count 6.7 T/CUMM (4-12)
[2019-12-11 06:05] LABS: Calcium 7.8 MG/DL (8.5-10.1); Osmolality,Calculated 314.2 MOS/KG (273-304)
[2019-12-11] MEDS: PANTOPRAZOLE 40 MG VIAL IV SCH (08:02)
[2019-12-11] MEDS: ASPIRIN CHEW 81 MG TABLET PO SCH (08:02)
[2019-12-11] MEDS: METOPROLOL TARTRATE 25 MG TABLET PO SCH ×2 (08:02→20:11)
[2019-12-11] MEDS: MULTIVITAMIN LIQUID (CENTRUM) 60 ML BOTTLE PO SCH (08:03)
[2019-12-11] MEDS: DESITIN 4OZ/NYSTATIN 15 GRAM MIXTURE PASTE TOP SCH ×2 (08:06→20:11)
[2019-12-11] MEDS: SODIUM BICARBONATE 650 MG TABLET PER TUBE SCH ×2 (12:20→20:11)
[2019-12-11 18:39] LABS: Hematocrit 23.6 VOL% (42.0-52.0)
[2019-12-11] MEDS: INSULIN GLARGINE 100 UNIT/ML SUBCUT SCH (20:11)
[2019-12-11] MEDS: SIMVASTATIN 10 MG TABLET PO SCH (20:12)
[2019-12-12] MEDS: INSULIN LISPRO 100 UNIT/ML SUBCUT SCH ×4 (00:34→18:14)
[2019-12-12 04:36] LABS: Basophils % 0.2 % (0.0-0.8); Eosinophils # 0.1 10*3/uL (0.0-0.87); Eosinophils % 2.2 % (0.00-10.9); Hematocrit 21.1 VOL% (42.0-52.0); Hemoglobin 7.1 GM/DL (14.0-18.0); Immature Granulocytes % 0.5 %; Immature Granulocytes Absolute 0.03 #; Lymphocytes # 0.3 10*3/uL (1.4-4.0); Lymphocytes % 4.9 % (21.2-54.2); Mean Corpuscular HGB Conc 33.6 GM/DL (32-36); Mean Corpuscular Volume 79.9 FL (87-102); Mean Platelet Volume 10.5 FL (9.6-12.0); Monocytes % 5.2 % (1.7-12.7); Platelet Count 120 T/CUMM (130-400); Red Blood Count 2.64 MC/CUMM (3.8-5.5); White Blood Count 6.3 T/CUMM (4-12)
[2019-12-12 04:57] LABS: ABG Base Excess -8.8 MMOL/L (-2.5-2.5); ABG HCO3 17.3 MMOL/L (20-26); ABG Oxygen Saturation 97.6 % (95-100); ABG PCO2 37.3 MM HG (35-48); ABG PH 7.276 (7.35-7.45); ABG TCO2 16.3 MMOL/L (23-27); Allen Test Positive; Pt O2 Delivery Device Ventilator
[2019-12-12 05:08] LABS: % Iron Saturation 22.5 % (18-50); Calcium 7.6 MG/DL (8.5-10.1); Ferritin 204.5 ng/ml (26-388); Osmolality,Calculated 317.9 MOS/KG (273-304)
[2019-12-12] MEDS: MULTIVITAMIN LIQUID (CENTRUM) 60 ML BOTTLE PO SCH (08:16)
[2019-12-12] MEDS: ASPIRIN CHEW 81 MG TABLET PO SCH (08:17)
[2019-12-12] MEDS: PANTOPRAZOLE 40 MG VIAL IV SCH (08:17)
[2019-12-12] MEDS: METOPROLOL TARTRATE 25 MG TABLET PO SCH ×2 (08:17→21:01)
[2019-12-12] MEDS: SODIUM BICARBONATE 650 MG TABLET PER TUBE SCH ×3 (08:17→21:00)
[2019-12-12] MEDS: DESITIN 4OZ/NYSTATIN 15 GRAM MIXTURE PASTE TOP SCH ×2 (08:17→21:01)
[2019-12-12 09:25] LABS: Anisocytosis 2+; Hypochromasia 3+; Macrocytosis Slight; Microcytosis 1+; Ovalocytes Few; Poikilocytosis 1+; Polychromasia Slight; Spherocytes 1+
[2019-12-12 09:26] LABS: Lymphocytes 3 % (20-55); Platelet Estimate Adequate; Segmented Neutrophils 94 % (50-85); Total Cells Counted 100
[2019-12-12] MEDS ORDERED: FUROSEMIDE INJ 200 MG in SODIUM CHLORIDE 0.9% 50 ML IV ONE (10:36)
[2019-12-12] MEDS: INSULIN GLARGINE 100 UNIT/ML SUBCUT SCH (21:00)
[2019-12-12] MEDS: SIMVASTATIN 10 MG TABLET PO SCH (21:01)
[2019-12-13] MEDS: INSULIN LISPRO 100 UNIT/ML SUBCUT SCH ×5 (00:14→23:58)
[2019-12-13 04:15] LABS: ABG Base Excess -8.5 MMOL/L (-2.5-2.5); ABG HCO3 16.1 MMOL/L (20-26); ABG Oxygen Saturation 95.6 % (95-100); ABG PCO2 29.7 MM HG (35-48); ABG PH 7.353 (7.35-7.45); ABG PO2 91.4 MM HG (80-95); ABG TCO2 17.1 MMOL/L (23-27); Allen Test Positive; Pt O2 Delivery Device Ventilator
[2019-12-13 04:29] LABS: Basophils % 0.1 % (0.0-0.8); Eosinophils # 0.2 10*3/uL (0.0-0.87); Eosinophils % 2.9 % (0.00-10.9); Hematocrit 21.7 VOL% (42.0-52.0); Hemoglobin 7.3 GM/DL (14.0-18.0); Immature Granulocytes % 0.4 %; Immature Granulocytes Absolute 0.03 #; Lymphocytes # 0.3 10*3/uL (1.4-4.0); Lymphocytes % 3.9 % (21.2-54.2); Mean Corpuscular HGB Conc 33.6 GM/DL (32-36); Mean Corpuscular Volume 78.9 FL (87-102); Mean Platelet Volume 10.6 FL (9.6-12.0); Monocytes % 4.9 % (1.7-12.7); Neutrophils % 87.8 % (38.7-73.9); Platelet Count 169 T/CUMM (130-400); Red Blood Count 2.75 MC/CUMM (3.8-5.5); Red Cell Distribution Width 16.4 % (9.3-17.3)
[2019-12-13 04:48] LABS: Calcium 7.6 MG/DL (8.5-10.1); Osmolality,Calculated 324.9 MOS/KG (273-304)
[2019-12-13 04:49] LABS: Anisocytosis 1+; Eosinophils 3 % (0-10); Lymphocytes 4 % (20-55); Segmented Neutrophils 88 % (50-85); Total Cells Counted 100
[2019-12-13 04:50] LABS: Hypochromasia 1+; Microcytosis 1+; Platelet Estimate Adequate
[2019-12-13] MEDS: PANTOPRAZOLE 40 MG VIAL IV SCH (08:49)
[2019-12-13] MEDS: MULTIVITAMIN LIQUID (CENTRUM) 60 ML BOTTLE PO SCH (08:50)
[2019-12-13] MEDS: ASPIRIN CHEW 81 MG TABLET PO SCH (08:50)
[2019-12-13] MEDS: SODIUM BICARBONATE 650 MG TABLET PER TUBE SCH ×3 (08:50→20:49)
[2019-12-13] MEDS: DESITIN 4OZ/NYSTATIN 15 GRAM MIXTURE PASTE TOP SCH ×2 (08:50→20:49)
[2019-12-13] MEDS: METOPROLOL TARTRATE 25 MG TABLET PO SCH ×2 (08:50→20:48)
[2019-12-13] MEDS: SIMVASTATIN 10 MG TABLET PO SCH (20:48)
[2019-12-13] MEDS: INSULIN GLARGINE 100 UNIT/ML SUBCUT SCH (21:17)
[2019-12-14 04:09] LABS: ABG Base Excess -9.9 MMOL/L (-2.5-2.5); ABG HCO3 16.4 MMOL/L (20-26); ABG Oxygen Saturation 99.2 % (95-100); ABG PCO2 39.7 MM HG (35-48); ABG PH 7.237 (7.35-7.45); Allen Test Positive; Pt O2 Delivery Device Ventilator
[2019-12-14] MEDS: INSULIN LISPRO 100 UNIT/ML SUBCUT SCH (05:48)
[2019-12-14 05:54] LABS: Basophils % 0.1 % (0.0-0.8); Eosinophils # 0.3 10*3/uL (0.0-0.87); Eosinophils % 3.7 % (0.00-10.9); Hematocrit 24.7 VOL% (42.0-52.0); Hemoglobin 8.2 GM/DL (14.0-18.0); Immature Granulocytes % 0.6 %; Immature Granulocytes Absolute 0.05 #; Lymphocytes # 0.4 10*3/uL (1.4-4.0); Mean Corpuscular HGB Conc 33.2 GM/DL (32-36); Mean Corpuscular Volume 80.2 FL (87-102); Mean Platelet Volume 10.6 FL (9.6-12.0); Monocytes % 4.2 % (1.7-12.7); Neutrophils % 86.4 % (38.7-73.9); Platelet Count 254 T/CUMM (130-400); Red Blood Count 3.08 MC/CUMM (3.8-5.5); Red Cell Distribution Width 16.7 % (9.3-17.3); White Blood Count 7.8 T/CUMM (4-12)
[2019-12-14 06:10] LABS: Calcium 8.1 MG/DL (8.5-10.1); Osmolality,Calculated 324.1 MOS/KG (273-304)
[2019-12-14] MEDS: METOPROLOL TARTRATE 25 MG TABLET PO SCH ×2 (08:51→20:12)
[2019-12-14] MEDS: ASPIRIN CHEW 81 MG TABLET PO SCH (08:51)
[2019-12-14] MEDS: PANTOPRAZOLE 40 MG VIAL IV SCH (08:51)
[2019-12-14] MEDS: SODIUM BICARBONATE 650 MG TABLET PER TUBE SCH ×3 (08:51→20:12)
[2019-12-14] MEDS: DESITIN 4OZ/NYSTATIN 15 GRAM MIXTURE PASTE TOP SCH ×2 (08:51→20:12)
[2019-12-14] MEDS: MULTIVITAMIN LIQUID (CENTRUM) 60 ML BOTTLE PO SCH (10:12)
[2019-12-14] MEDS ORDERED: MORPHINE 4 MG/1 ML VIAL IV PRN (19:16)
[2019-12-14] MEDS: SIMVASTATIN 10 MG TABLET PO SCH (20:12)
[2019-12-15] MEDS: DESITIN 4OZ/NYSTATIN 15 GRAM MIXTURE PASTE TOP SCH ×2 (07:45→21:57)
[2019-12-15] MEDS: MULTIVITAMIN LIQUID (CENTRUM) 60 ML BOTTLE PO SCH (10:46)
[2019-12-15] MEDS: METOPROLOL TARTRATE 25 MG TABLET PO SCH (10:46)
[2019-12-15] MEDS: ASPIRIN CHEW 81 MG TABLET PO SCH (10:46)
[2019-12-15] MEDS: SODIUM BICARBONATE 650 MG TABLET PER TUBE SCH (10:47)
[2019-12-15] MEDS: PANTOPRAZOLE 40 MG VIAL IV SCH (10:57)
[2019-12-16] MEDS ORDERED: LORazepam 2 MG/1 ML VIAL IV PRN ×2 (08:04→23:12)
[2019-12-16] MEDS ORDERED: MORPHINE 4 MG/1 ML VIAL IV PRN ×2 (08:04→23:12)
[2019-12-16] MEDS ORDERED: fentaNYL 25 MCG/HR PATCH TRANSDERM SCH (16:00)
[2019-12-16 21:54] VITALS: BP 123/52
[2019-12-16] MEDS ORDERED: ACETAMINOPHEN 650 MG SUPP RECTAL PRN (23:14)
[2019-12-16] MEDS ORDERED: BISACODYL 10 MG SUPP RECTAL PRN (23:14)
== END 2019-12-16 20:19 | disposition hospice, inpatient (51) | DRG 870 ==
LOC: EDBD → EDUNIT# → N.ED 14:30 → SUATTDRO 18:11 → SUPCPDRO 18:11 → N.EDINP 18:11 → N.2E 19:25 → N.CC 11-29 03:41 → N.2W 12-15 17:02
PROVIDERS: ADMIT Internal Medicine; ATTEND Internal Medicine

== ENCOUNTER 2019-12-16 20:42 | Inpatient (IN) ==
[2019-12-17] MEDS ORDERED: LORazepam 2 MG/1 ML VIAL IV PRN (01:34)
[2019-12-17] MEDS: MORPHINE 4 MG/1 ML VIAL IV PRN ×2 (02:35→21:18)
[2019-12-17 05:16] VITALS: BP 126/57
[2019-12-17] MEDS ORDERED: fentaNYL 25 MCG/HR PATCH TRANSDERM SCH (12:30)
== END 2019-12-18 03:56 | disposition expired | DRG 951 ==
LOC: N.2W 20:42 → SUATTDRO 20:42
PROVIDERS: ADMIT Family Medicine; ATTEND Internal Medicine